=== PATIENT | male | born 1975 | race Two or more races ===

== ENCOUNTER 2022-05-12 09:44 | Emergency (ER) | payer OTHER ==
[~2022-05-12] VITALS: Ht 175.3 cm; Wt 86.3 kg
[2022-05-12 10:07] VITALS: BP 135/82
[2022-05-12] MEDS ORDERED: IBUP800T27 PO (10:57)
== END 2022-05-12 11:15 | disposition home or self-care (01) ==
LOC: ER 09:44
DX: S20.212A Contusion of left front wall of thorax, initial encounter (principal); W18.09XA Striking against other object with subsequent fall, initial encounter; Y93.89 Activity, other specified; Y92.89 Other specified places as the place of occurrence of the external cause; Y99.8 Other external cause status
CPT/HCPCS: 71101

== ENCOUNTER 2023-03-23 19:24 | Emergency (ER) | payer OTHER ==
[~2023-03-23] VITALS: Ht 167.6 cm; Wt 88.5 kg
[~2023-03-23 19:24] MED LIST: IBUP-1456 PO
[2023-03-23] MEDS ORDERED: IBUPROFEN 800 MG TAB PO ONE (21:15)
[2023-03-23] MEDS ORDERED: IBUP1TAB5 PO (21:18)
[2023-03-23] MEDS ORDERED: CYCL-839 PO (21:18)
[2023-03-23 22:32] VITALS: BP 131/98; PULSE 73; RESP 18; TEMP 97.9; O2SAT 97
== END 2023-03-23 22:33 | disposition home or self-care (01) ==
LOC: ER 19:24
DX: S43.402A Unspecified sprain of left shoulder joint, initial encounter (principal); R94.31 Abnormal electrocardiogram [ECG] [EKG]; W18.09XA Striking against other object with subsequent fall, initial encounter; Y93.89 Activity, other specified; Y92.89 Other specified places as the place of occurrence of the external cause; Y99.8 Other external cause status
CPT/HCPCS: 71046; 73030; 93005